=== PATIENT | female | born 1960 | race Two or more races ===

== ENCOUNTER 2019-06-08 13:47 | Emergency (ER) | payer MEDICAID, OTHER ==
[~2019-06-08] VITALS: Ht 167.6 cm; Wt 108.9 kg
[2019-06-08 14:02] VITALS: BP 146/81
[2019-06-08] MEDS ORDERED: cefTRIAXone SOD 1,000 MG VL IM ONE (15:15)
[2019-06-08] MEDS: KETOROLAC TROMETH 60MG/2ML VIAL IM ONE ×2 (15:17→15:20)
== END 2019-06-08 15:48 | disposition home or self-care (01) ==
LOC: EDBD 13:47 → ER 13:51
DX: K04.7 Periapical abscess without sinus (principal); F41.9 Anxiety disorder, unspecified
CPT/HCPCS: 96372; 99283; J0696; J1885

== ENCOUNTER 2020-12-19 11:27 | Emergency (ER) | payer MEDICAID ==
[~2020-12-19] VITALS: Ht 175.3 cm; Wt 114.3 kg
[2020-12-19 12:08] VITALS: BP 122/57
[2020-12-19] MEDS ORDERED: cefTRIAXone SOD 1,000 MG VL IM ONE (12:30)
[2020-12-19] MEDS ORDERED: IBUPROFEN 800 MG TAB PO ONE (12:30)
== END 2020-12-19 12:51 | disposition home or self-care (01) ==
LOC: ER 11:27
DX: K04.7 Periapical abscess without sinus (principal)
CPT/HCPCS: 96372; 99283; J0696

== ENCOUNTER 2021-02-25 10:41 | Emergency (ER) | payer MEDICAID ==
[~2021-02-25] VITALS: Ht 175.3 cm; Wt 113.4 kg
[2021-02-25 11:30] VITALS: BP 129/55
[2021-02-25] MEDS ORDERED: cefTRIAXone SOD 1,000 MG VL IM ONE (11:45)
[2021-02-25] MEDS ORDERED: LIDOCAINE 1% HCL (LOCAL ANESTH.) INJ 20ML MDV ONE (11:49)
== END 2021-02-25 12:08 | disposition home or self-care (01) ==
LOC: ER 10:41
DX: K02.9 Dental caries, unspecified (principal); Z88.5 Allergy status to narcotic agent; Z88.8 Allergy status to other drugs, medicaments and biological substances
CPT/HCPCS: 96372; 99283; J0696; J2001

== ENCOUNTER 2021-09-15 12:50 | Emergency (ER) | payer MEDICAID ==
[~2021-09-15] VITALS: Ht 175.3 cm; Wt 113.4 kg
[2021-09-15 15:40] VITALS: BP 132/65
[2021-09-15] MEDS ORDERED: CLIN300C8 PO (15:43)
[2021-09-15] MEDS ORDERED: cefTRIAXone SOD 1,000 MG VL IM ONE (15:45)
== END 2021-09-15 16:17 | disposition home or self-care (01) ==
LOC: ER 12:50
DX: K04.7 Periapical abscess without sinus (principal)
CPT/HCPCS: 96372; 99283; J0696